=== PATIENT | male | born 1940 ===

== ENCOUNTER 2021-08-22 16:52 | Outpatient (REF) | payer MEDICARE, SELFPAY ==
[2021-08-22 15:40] LABS: Bilirubin Negative (Negative); Blood Negative (Negative); Clarity Clear (Clear); Glucose Negative (Negative); Ketones Negative (Negative); Leukocyte Esterase Negative (Negative); Nitrite Negative (Negative); Urobilinogen 0.2 EU/dL (Up TO 0.2)
== END 2021-08-22 16:53 | disposition home or self-care (01) ==
LOC: LBN 16:52
PROVIDERS: Visit Provider Naturopath
DX: E88.09 Other disorders of plasma-protein metabolism, not elsewhere classified (principal)
CPT/HCPCS: 81003